=== PATIENT | female | born 1975 | race Caucasian/White ===

== ENCOUNTER 2018-03-26 20:15 | Emergency (ER) | payer OTHER ==
[~2018-03-26] VITALS: Ht 165.1 cm; Wt 81.6 kg
[~2018-03-26 20:15] MED LIST: AVALIDE 150-12.1 TA1 PO; PRISTIC
== END 2018-03-26 23:54 | disposition home or self-care (01) ==
LOC: ER 20:15
DX: S51.811A Laceration without foreign body of right forearm, initial encounter (principal); W45.8XXA Other foreign body or object entering through skin, initial encounter; Y93.89 Activity, other specified; Y92.89 Other specified places as the place of occurrence of the external cause; Y99.8 Other external cause status

== ENCOUNTER 2018-10-02 14:53 | Emergency (ER) | payer OTHER ==
[~2018-10-02] VITALS: Ht 165.1 cm; Wt 86.2 kg
== END 2018-10-02 19:40 | disposition home or self-care (01) ==
LOC: ER 14:53
DX: R51 Headache (principal); J32.8 Other chronic sinusitis